=== PATIENT | female | born 1960 | race African-American/Black ===

== ENCOUNTER 2017-11-15 07:32 | Emergency (ER) | payer BC ==
[~2017-11-15] VITALS: Ht 162.6 cm; Wt 98.7 kg
[~2017-11-15 07:32] MED LIST: ANTIVERT25 MG PO; ROBITUSSIN AC,T10 ML PO; ZESTORETIC 20-1 EAC2 PO
[2017-11-15] MEDS ORDERED: FLEXERIL10 MG PO (10:13)
[2017-11-15] MEDS ORDERED: NAPROSYN500 MG PO (10:13)
[2017-11-15 11:14] VITALS: BP 182/96
== END 2017-11-15 11:14 | disposition home or self-care (01) ==
LOC: EME 07:32
DX: M25.511 Pain in right shoulder (principal); I10 Essential (primary) hypertension; Z88.6 Allergy status to analgesic agent; Z88.5 Allergy status to narcotic agent
CPT/HCPCS: 73030; 80053; 85027; 99281; 99284